=== PATIENT | male | born 1935 | race American Indian/Alaskan Native ===

== ENCOUNTER 2016-08-30 12:01 | Emergency (ER) | payer MEDICARE, MEDICAID ==
[2016-08-30 12:14] VITALS: RESP 18; TEMP 98.9; O2SAT 98; BMI 27.8
--- NOTE | 2016-08-30 12:24 | ED PDOC ---
Arrival/HPI - General Chief Complaint: Lower Extremity Problem/Injury Time Seen by Provider: 08/30/16 12:04 Historian: Patient - History of Present Illness Narrative History of Present Illness (Text): 08/30/16 12:20 80 y/o male, pmh including htn/hyperlipidemia/dm, nkda, c/o lt. foot 1st great toe pain x 5 days with no fall or trauma. Aching pain, aggravated by touching, no redness, able to bear weight and walk, no numbness or tingling, admits eat seafood the day before it happened, no numbness or tingling, no night sweat, no other medical or psychological complaints. Past Medical History - Provider Review Nursing Documentation Reviewed: Yes - Cardiac Hx Hypertension: Yes - Pulmonary Hx Respiratory Disorders: No - Neurological Hx Neurological Disorder: No - HEENT Hx HEENT Disorder: Yes (uses glasses) Hx Cataracts: Yes (bilateral) - Renal Hx Renal Disorder: Yes - Endocrine/Metabolic Hx Endocrine Disorders: Yes Hx Diabetes Mellitus Type 1: Yes Hx Diabetes Mellitus Type 2: Yes - Hematological/Oncological Hx Blood Disorders: No - Integumentary Hx Dermatological Disorder: No - Musculoskeletal/Rheumatological Hx Falls: No - Gastrointestinal Hx Gastrointestinal Disorders: No - Genitourinary/Gynecological Hx Genitourinary Disorders: No Hx Prostate Problems: Yes - Psychiatric Hx Depression: No Hx Emotional Abuse: No Hx Physical Abuse: No Hx Substance Use: No - Surgical History Hx Orthopedic Surgery: Yes (right hip) - Anesthesia Hx Anesthesia: Yes Hx Anesthesia Reactions: No Hx Malignant Hyperthermia: No - Suicidal Assessment Feels Threatened In Home Enviroment: No Family/Social History - Physician Review Nursing Documentation Reviewed: Yes Family/Social History: Unknown Family HX Smoking Status: Former Smoker Hx Alcohol Use: Yes Frequency of alcohol use: Few days per week Hx Substance Use: No Hx Substance Use Treatment: No Allergies/Home Meds Allergies/Adverse Reactions: Allergies No Known Allergies Allergy (Verified 08/30/16 12:14) Home Medications: Home Meds Medication Instructions Recorded Confirmed Insulin Glargine,Hum.rec.anlog 35 units SUBCUT QAM 08/06/12 08/30/16 [Lantus] Aspirin [Ecotrin] 81 mg PO DAILY 08/30/16 08/30/16 Atorvastatin Calcium 40 mg PO HS 08/30/16 08/30/16 Docusate [Colace] 100 mg PO TID 08/30/16 08/30/16 Glipizide [Glipizide Xl] 5 mg PO BID 08/30/16 08/30/16 Lisinopril [Zestril] 10 mg PO DAILY 08/30/16 08/30/16 Nifedipine [Procardia Xl] 90 mg PO DAILY 08/30/16 08/30/16 Saxagliptin HCl [Onglyza] 2.5 mg PO DAILY 08/30/16 08/30/16 Terazosin [Hytrin] 10 mg PO HS 08/30/16 08/30/16 hydroCHLOROthiazide [Hydrodiuril] 25 mg PO DAILY 08/30/16 08/30/16 Review of Systems - Review of Systems Constitutional: absent: Fatigue, Fevers ENT: absent: Hearing Changes Respiratory: absent: SOB, Cough Cardiovascular: absent: Chest Pain, Palpitations Gastrointestinal: absent: Abdominal Pain, Nausea, Vomiting Musculoskeletal: Arthralgias. absent: Back Pain, Neck Pain, Joint Swelling, Myalgias Neurological: absent: Headache, Dizziness, Focal Weakness, Gait Changes, Speech Changes, Facial Droop, Disequilibrium, Seizure Physical Exam Vital Signs Reviewed: Yes Vital Signs Temp Pulse Resp BP Pulse Ox 08/30/16 12:09 98.9 F 72 18 123/61 98 Temperature: Afebrile Blood Pressure: Normal Pulse: Regular Respiratory Rate: Normal Appearance: Positive for: Well-Appearing, Non-Toxic, Comfortable Pain Distress: Mild Mental Status: Positive for: Alert and Oriented X 3 - Systems Exam Head: Present: Atraumatic, Normocephalic Pupils: Present: PERRL Extroacular Muscles: Present: EOMI Conjunctiva: Present: Normal Mouth: Present: Moist Mucous Membranes Neck: Present: Normal Range of Motion Respiratory/Chest: Present: Clear to Auscultation, Good Air Exchange. No: Respiratory Distress, Accessory Muscle Use Cardiovascular: Present: Regular Rate and Rhythm, Normal S1, S2. No: Murmurs Abdomen: Present: Normal Bowel Sounds. No: Tenderness, Distention, Peritoneal Signs, Guarding Back: Present: Normal Inspection Upper Extremity: Present: Normal Inspection. No: Cyanosis, Edema Lower Extremity: Present: Normal Inspection, Other (Lt. foot: +ttp on the lt. medial aspect of the lt. foot distal phalanx region, no tenderness or swelling, skin intact, no 1st Metatarsal redness or tenderness/swelling, no deformity, FROM without limitation, sensation intact, motor 5/5, +DPPT pulses, capillary refill< 2 seconds, neurovascular intact. ). No: Edema Neurological: Present: GCS=15, Speech Normal, Motor Func Grossly Intact, Gait Normal, Memory Normal Skin: Present: Warm, Dry, Normal Color. No: Rashes Psychiatric: Present: Alert, Oriented x 3, Normal Insight, Normal Concentration Medical Decision Making ED Course and Treatment: 08/30/16 12:20 -lt. foot xray -indomethacin 08/30/16 12:51 -xray show no fracture or dislocation, there is old changes of chronic cortical on the lt. foot 1st toe region which appears smooth or this can be degenerative changes. -Devyn tapping applied for supportive treatment, pt. will need cane for supportive treatment. -Discharge home with devyn tapping, cane, indomethacin, avoid excessive walking , follow up with your own pmd and business intern within 2 days, return to the ER for any new or worsening signs or symptoms. - RAD Interpretation Radiology Orders: 08/30/16 12:18 FOOT LEFT GREAT TOE ROUTINE [RAD] Stat PROCEDURE: Left Foot Radiographs. HISTORY: lt. foot medial aspect of the toe pain x 5 days COMPARISON: None. FINDINGS: BONES: Normal. No fracture. JOINTS: Normal. SOFT TISSUES: Normal. OTHER FINDINGS: None. IMPRESSION: Normal left foot radiographs. Fastener Technologist: Radiologist - Medication Orders Current Medication Orders: Discontinued Medications Indomethacin (Indocin) 50 mg PO STAT STA Stop: 08/30/16 12:19 Last Admin: 08/30/16 12:27 Dose: 50 MG MAR Pain Assessment Document 08/30/16 12:27 RR (Rec: 08/30/16 12:27 RR [id number]) Pain Reassessment Is this a pain reassessment? Yes Sleep Is patient sleeping during reassessment? No Presence of Pain Presence of Pain Yes Pain Scale Used Pain Scale Used Numeric Location Left, Right or Bilateral Right Pain Location Body Site Great Toe Description Description Constant Aggravating Factors ADL's Changing Position Exercise/Activity Alleviating Factors/Management Medication Techniques Position Change Alleviating Factors Medication - PA / FINE GRADER / Resident Statement MD/DO has reviewed & agrees with the documentation as recorded. Disposition/Present on Arrival - Present on Arrival Any Indicators Present on Arrival: No History of DVT/PE: No History of Uncontrolled Diabetes: No Urinary Catheter: No History of Decub. Ulcer: No History Surgical Site Infection Following: None - Disposition Have Diagnosis and Disposition been Completed?: Yes Diagnosis: Toe pain, Tendinitis of toe Disposition: HOME/ ROUTINE Disposition Time: 12:24 Patient Plan: Discharge Patient Problems: Current Active Problems Problem Status Diagnosed Tendinitis of toe Acute Toe pain Acute Condition: GOOD Additional Instructions: Discharge home with devyn tapping, cane, indomethacin, avoid excessive walking , follow up with your own pmd and business intern within 2 days, return to the ER for any new or worsening signs or symptoms. Prescriptions: Indomethacin [Indocin] 50 mg PO TID PRN #21 cap PRN Reason: Other Referrals: Liseth Saldana MD [Primary Care Provider] - Follow up with primary Araseli Law DPM [Staff Provider] - Follow up with primary Forms: WORK NOTE
--- NOTE | 2016-08-30 12:45 | RAD ---
PROCEDURE: Left Foot Radiographs. HISTORY: lt. foot medial aspect of the toe pain x 5 days COMPARISON: None. FINDINGS: BONES: Normal. No fracture. JOINTS: Normal. SOFT TISSUES: Normal. OTHER FINDINGS: None. IMPRESSION: Normal left foot radiographs.
[2016-08-30 13:01] VITALS: BP 121/63; PULSE 69
== END 2016-08-30 13:15 | disposition home or self-care (01) ==
LOC: ED 12:01
DX: M77.8 Other enthesopathies, not elsewhere classified (principal)